=== PATIENT | female | born 1980 | race Caucasian/White ===

== ENCOUNTER 2016-06-09 01:28 | Emergency (ER) | payer OTHER ==
[~2016-06-09] VITALS: Ht 157.5 cm; Wt 70.0 kg
[2016-06-09 01:40] VITALS: BP 158/100; PULSE 97; RESP 18; TEMP 98; O2SAT 97
--- NOTE | 2016-06-09 04:05 | PD ---
HPI Chief Complaint: alcohol Time Seen by Provider: 02:00 Travel History International Travel<30 days: No Contact w/Intl Traveler<30days: No Traveled to known affect area: No History of Present Illness HPI This is a 35-year-old female who presents under a Samuel act initiated by the [employer]. The patient was found in a bar on a toilet. The patient reports that she drank too much alcohol tonight and her friends left her in the bar. She denies any drug use. Denies any injuries. She has no medical complaints at this time. [facility] Social History Alcohol Use: Yes Tobacco Use: Yes Substance Use: No Allergies-Medications (Allergen,Severity, Reaction): Coded Allergies: No Known Allergies (Unverified , 06/09/16) Review of Systems Except as stated in HPI: all other systems reviewed are Neg Physical Exam Narrative GENERAL: Well-developed well-nourished female in no acute distress SKIN: Warm and dry. HEAD: Atraumatic. Normocephalic. EYES: Pupils equal and round. No scleral icterus. No injection or drainage. CARDIOVASCULAR: Regular rate and rhythm. No murmur appreciated. RESPIRATORY: No accessory muscle use. Clear to auscultation. Breath sounds equal bilaterally. GASTROINTESTINAL: Abdomen soft, non-tender, nondistended. MUSCULOSKELETAL: No obvious deformities. No clubbing. No cyanosis. No edema. NEUROLOGICAL: Awake and alert. No obvious cranial nerve deficits. Motor grossly within normal limits. Slurred speech, mildly ataxic gait MDM Medical Decision Making Medical Screen Exam Complete: Yes Emergency Medical Condition: Yes Medical Record Reviewed: Yes Differential Diagnosis Alcohol intoxication, polysubstance abuse, acute psychosis Narrative Course This is a 35-year-old female who became intoxicated in a bar and was placed under Samuel act. She has no acute medical complaints at this time. The plan is to have the patient remained here until she is clinically sober or until she is able to obtain a ride home. She will then be discharged. Her vital signs were obtained during medical downtime and are charted under a paper chart, they are within normal limits. Diagnosis Primary Impression: Alcohol intoxication Qualified Code: F10.120 - Alcohol intoxication, uncomplicated Med/Other Pt SpecificInfo: No Change to Meds Disposition: 01 DISCHARGE HOME Condition: Stable Jose Alberto Vega Jun 09, 2016 04:05
[2016-06-09 04:18] VITALS: BP 140/86; PULSE 88; RESP 17; O2SAT 99
[2016-06-09 06:14] VITALS: BP 140/86; TEMP 97.8
== END 2016-06-09 06:14 | disposition home or self-care (01) ==
LOC: NEPA 01:28
DX: F10.120 Alcohol abuse with intoxication, uncomplicated (principal); Z72.0 Tobacco use
CPT/HCPCS: 99284